=== PATIENT | female | born 1980 | race Caucasian/White ===

== ENCOUNTER 2021-12-09 23:36 | Emergency (ER) | payer MEDICAID ==
[~2021-12-09] VITALS: Ht 165.1 cm; Wt 93.9 kg
[2021-12-10] MEDS ORDERED: CEPHALEXIN500 M1 PO (01:06)
== END 2021-12-10 01:26 | disposition home or self-care (01) ==
LOC: ED 23:36
DX: F15.129 Other stimulant abuse with intoxication, unspecified (principal); F19.129 Other psychoactive substance abuse with intoxication, unspecified; N39.0 Urinary tract infection, site not specified; Z88.8 Allergy status to other drugs, medicaments and biological substances
CPT/HCPCS: 80053; 81001; 83690; 84703; 85025; 99284; G0480